=== PATIENT | male | born 1985 | race Caucasian/White ===

== ENCOUNTER 2019-11-22 14:57 | Outpatient (CLI) | payer BC, SELFPAY ==
--- NOTE | ~2019-11-22 | XR_ITS ---
XR foot RT min 3V DATE: 11/22/2019 15:24 INDICATION: Right medial foot pain for 7 to 10 days. History of gout. TECHNIQUE: 4 views COMPARISON: None FINDINGS: No fracture, dislocation, periosteal reaction or bone destruction is noted. There is hallu x valgus. IMPRESSION: No fracture or dislocation Reviewed, dictated and finalized at location A. IMPRESSION: No fracture or dislocation
== END 2019-11-22 14:58 | disposition home or self-care (01) ==
LOC: CHSIMG 15:02
PROVIDERS: PCP Family Medicine; Visit Provider Family Medicine
DX: M79.671 Pain in right foot (principal)
CPT/HCPCS: 73630

== ENCOUNTER 2020-07-10 16:01 | Outpatient (CLI) | payer BC, SELFPAY ==
[2020-07-12 17:28] LABS: SARS-CoV-2 RNA PCR Positive
== END 2020-07-10 16:02 | disposition home or self-care (01) ==
LOC: CHSLAB 16:07
PROVIDERS: PCP Family Medicine; Visit Provider Family Medicine
DX: U07.1 COVID-19 (principal)
CPT/HCPCS: C9803; U0003; U0005

== ENCOUNTER 2022-09-11 13:38 | Outpatient (CLI) | payer BC, SELFPAY ==
--- NOTE | ~2022-09-11 | XR_ITS ---
XR ankle RT min 3V DATE: 09/11/2022 13:59 INDICATION: Right ankle pain, swelling, erythema TECHNIQUE: 4 views COMPARISON: None FINDINGS: Mild lateral soft tissue swelling. No fracture or dislocation of the ankle or disruption of the ankle mortise. No periosteal reaction or bone destruction. IMPRESSION: Mild lateral soft tissue swelling; no bony abnormality Reviewed, dictated and finalized at location B.
== END 2022-09-11 13:39 | disposition home or self-care (01) ==
LOC: CHSIMG 13:40
PROVIDERS: PCP Family Medicine; Visit Provider Family Medicine
DX: M25.571 Pain in right ankle and joints of right foot (principal); M79.89 Other specified soft tissue disorders
CPT/HCPCS: 73610